=== PATIENT | female | born 1955 | race Caucasian/White ===

== ENCOUNTER 2021-07-05 12:31 | Emergency (ER) | payer OTHER ==
--- NOTE | 2021-07-05 12:39 | ED Physician Documentation ---
PD HPI CHEST PAIN - Stated complaint Stated Complaint: CHEST PX - Chief complaint Chief Complaint: Cardiac - History obtained from History obtained from: Patient - History of Present Illness Timing - onset: How many hours ago (1) Timing - onset during: Light activity Timing - duration: Hours (1) Timing - details: Abrupt onset, Still present Quality: Aching, Sharp, Pain Location: Substernal, Left chest Radiation: Jaw, Back. No: Abdominal Associated symptoms: No: Shortness of air Review of Systems Constitutional: denies: Fever, Chills Nose: denies: Rhinorrhea / runny nose, Congestion Throat: denies: Sore throat Respiratory: denies: Cough GI: reports: Abdominal Pain, Nausea, Vomiting. denies: Constipation, Diarrhea Skin: denies: Rash, Lesions Musculoskeletal: denies: Extremity swelling PD PAST MEDICAL HISTORY - Past Medical History Cardiovascular: Hypertension Respiratory: None Neuro: None Endocrine/Autoimmune: None GI: None - Allergies Allergies/Adverse Reactions: Allergies Allergy/AdvReac Type Severity Reaction Status Date / Time No Known Drug Allergies Allergy Verified 07/05/21 12:37 PD ED PE NORMAL - Vitals Vital signs reviewed: Yes - General General: Alert and oriented X 3, Well developed/nourished, Other (appears in pain) - Neck Neck: Supple, no meningeal sign, No adenopathy, No JVD, No bruit - Cardiac Cardiac: RRR, No murmur, No rub - Respiratory Respiratory: Clear bilaterally - Abdomen Abdomen: Normal bowel sounds, Soft, Non distended, No organomegaly, Other (tender in epigastric area. Normal femoral pulses. ) - Female Female : Deferred - Rectal Rectal: Deferred - Back Back: No CVA TTP - Derm Derm: Normal color - Extremities Extremities: No edema, No calf tenderness / cord - Neuro Neuro: Alert and oriented X 3, certified alcohol drug counselor 2-12 intact, No motor deficit, No sensory deficit, Other (good sensation, pulses, and cap refill in feet/toes. ) Eye Opening: Spontaneous Motor: Obeys Commands Verbal: Oriented GCS Score: 15 Results - Vitals Vitals: Vital Signs - 24 hr 07/05/21 07/05/21 07/05/21 12:37 12:38 13:08 Temperature 36.5 C Heart Rate 65 63 63 Respiratory 18 24 19 Rate Blood Pressure 121/74 172/64 H 128/63 O2 Saturation 100 100 97 07/05/21 07/05/21 07/05/21 13:30 15:00 15:30 Temperature Heart Rate 52 L 70 56 L Respiratory 21 12 16 Rate Blood Pressure 133/62 H 165/67 H 164/58 H O2 Saturation 100 99 100 07/05/21 16:00 Temperature Heart Rate 61 Respiratory 12 Rate Blood Pressure 154/69 H O2 Saturation 99 Oxygen O2 Source Room air - EKG (time done) 12:31 Rate: Rate (enter#) (60) Rhythm: NSR [place]: Normal Intervals: Normal [place] QRS: LVH Ischemia: Normal ST segments. No: ST elevation c/w ischemia, ST depression - Labs Labs: Laboratory Tests 07/05/21 07/05/21 07/05/21 12:42 12:42 12:42 WBC 6.5 RBC 4.06 L Hgb 12.5 Hct 38.3 MCV 94.3 MCH 30.8 MCHC 32.6 RDW 13.4 Plt Count 208 MPV 9.2 Neut # (Auto) 3.5 Lymph # (Auto) 2.4 [place] # (Auto) 0.5 Eos # (Auto) 0.1 Baso # (Auto) 0.0 Absolute Nucleated RBC 0.00 Nucleated RBC % 0.0 Sodium 134 L Potassium 3.2 L Chloride 96 L Carbon Dioxide 25 Anion Gap 13.0 BUN 17 Creatinine 0.9 Estimated GFR (MDRD) 63 L Glucose 148 H Calcium 9.9 Total Bilirubin 1.2 H AST 41 ALT 37 Alkaline Phosphatase 47 Troponin I High Sens 6.8 Total Protein 7.9 Albumin 4.7 Globulin 3.2 Albumin/Globulin Ratio 1.5 Lipase 33 Nasal Adenovirus (PCR) Nasal B. parapertussis DNA (PCR) Nasal Coronavir 229E PCR Nasal Coronavir HKU1 PCR Nasal Coronavir NL63 PCR Nasal Coronavir OC43 PCR Nasal Enterovir/Rhinovir PCR Nasal Influenza B PCR Nasal Influenza A PCR Nasal Parainfluen 1 PCR Nasal Parainfluen 2 PCR Nasal Parainfluen 3 PCR Nasal Parainfluen 4 PCR Nasal RSV (PCR) Nasal B.pertussis DNA PCR Nasal C.pneumoniae (PCR) Yoel Human Metapneumo PCR Nasal M.pneumoniae (PCR) Nasal SARS-CoV-2 (PCR) 07/05/21 14:44 WBC RBC Hgb Hct MCV MCH MCHC RDW Plt Count MPV Neut # (Auto) Lymph # (Auto) [place] # (Auto) Eos # (Auto) Baso # (Auto) Absolute Nucleated RBC Nucleated RBC % Sodium Potassium Chloride Carbon Dioxide Anion Gap BUN Creatinine Estimated GFR (MDRD) Glucose Calcium Total Bilirubin AST ALT Alkaline Phosphatase Troponin I High Sens Total Protein Albumin Globulin Albumin/Globulin Ratio Lipase Nasal Adenovirus (PCR) NOT DETECTED Nasal B. parapertussis DNA (PCR) NOT DETECTED Nasal Coronavir 229E PCR NOT DETECTED Nasal Coronavir HKU1 PCR NOT DETECTED Nasal Coronavir NL63 PCR NOT DETECTED Nasal Coronavir OC43 PCR NOT DETECTED Nasal Enterovir/Rhinovir PCR NOT DETECTED Nasal Influenza B PCR NOT DETECTED Nasal Influenza A PCR NOT DETECTED Nasal Parainfluen 1 PCR NOT DETECTED Nasal Parainfluen 2 PCR NOT DETECTED Nasal Parainfluen 3 PCR NOT DETECTED Nasal Parainfluen 4 PCR NOT DETECTED Nasal RSV (PCR) NOT DETECTED Nasal B.pertussis DNA PCR NOT DETECTED Nasal C.pneumoniae (PCR) NOT DETECTED Yoel Human Metapneumo PCR NOT DETECTED Nasal M.pneumoniae (PCR) NOT DETECTED Nasal SARS-CoV-2 (PCR) NOT DETECTED - Rads (name of study) chest xrAY Radiology: Prelim report reviewed (no acute process), See rad report chest angio Radiology: Prelim report reviewed (Type A aortic dissection extending to descending aorta to iliac level. Kidneys and mesentery have blood flow. ), See rad report PD MEDICAL DECISION MAKING - ED course Complexity details: reviewed results, re-evaluated patient (Pain much improved with IV meds. Still normal neuro exam. Good femoral pulses still. ), considered differential (ACS vs aortic vs gallbladder colic vs pancreatic or perf ulcer among other things. ), d/w bath design sales consultant (Talked with transfer center and waited for their CT surgery to call back. Transfer center called back about 30 minutes later saying the surgeon was in the OR currently and would take 3 to 5 hours and to try another facility. We contacted [facility] transfer and I talked with their cardiac surgeon.) ED course: The patient was feeling much improved and pain after pain medicine and nitroglycerin here. With the CT scan showing an acute dissection, we started esmolol drip as well for target heart rate under 60 and to lower the blood pressure. This was titrated up with heart rate reaching goal but the blood pressure still a bit elevated at 150 systolic. Nicardipine drip was also started and will titrate. [facility] cardiothoracic surgeon was unavailable for small several hours. They suggested another facility and we contacted [facility] and talked with Dr. Kristian Cobb cardiac surgeon as well as the surgical ICU attending and they accepted transfer the patient to the ER and subsequently go directly to the OR. The patient remained stable without any chest pain. Neurologic exam is still normal. Femoral pulses are still good and good blood flow to the extremities. - Critical Care Time(min): 55 Time Includes: Direct patient care, Document care, Coordinate care, Medical consult Data interpretation: Labs, CXR Procedures excluded from critical care time: EKG Departure - Departure Disposition: 02 Transfer Acute Care Hosp Clinical Impression: Aortic dissection, thoracic Chest pain Qualifiers: Chest pain type: unspecified Qualified Code(s): R07.9 - Chest pain, unspecified Condition: Stable Record reviewed to determine appropriate education?: Yes
[2021-07-05 12:48] LABS: BASOPHILS % (AUTO) 0.3 %; EOSINOPHILS # (AUTO) 0.1 10^3/uL (0.0-0.7); EOSINOPHILS % (AUTO) 1.1 %; HCT - HEMATOCRIT 38.3 % (37.0-47.0); HGB - HEMOGLOBIN 12.5 g/dL (12.0-16.0); LYMPHOCYTES # (AUTO) 2.4 10^3/uL (1.5-3.5); LYMPHOCYTES % (AUTO) 37.8 %; MEAN CORPUSCULAR HEMOGLOBIN 30.8 pg (27.0-31.0); MEAN CORPUSCULAR HGB CONC 32.6 g/dL (32.0-36.0); MEAN CORPUSCULAR VOLUME 94.3 fL (81.0-99.0); MEAN PLATELET VOLUME 9.2 fL (7.9-10.8); MONOCYTES # (AUTO) 0.5 10^3/uL (0.0-1.0); NEUTROPHILS # (AUTO) 3.5 10^3/uL (1.5-6.6); NEUTROPHILS % (AUTO) 53.6 %; PLT - PLATELET COUNT 208 10^3/uL (130-450); RED BLOOD COUNT 4.06 10^6/uL (4.20-5.40); RED CELL DISTRIBUTION WIDTH 13.4 % (12.0-15.0); WHITE BLOOD COUNT 6.5 x10^3/uL (4.8-10.8)
[2021-07-05] MEDS ORDERED: MORPHINE 2 MG/ML CARPUJECT IVP STA (12:54)
[2021-07-05] MEDS ORDERED: KETOROLAC 15 MG/ML VIAL IVP STA (12:54)
[2021-07-05] MEDS ORDERED: NITROGLYCERIN SL 0.4 MG TABLET SL STA (12:55)
[2021-07-05] MEDS ORDERED: SODIUM CHLORIDE 0.9% 1,000 ML IV STA (12:56)
[2021-07-05] MEDS ORDERED: ONDANSETRON 4 MG/2 ML VIAL IVP STA (12:58)
--- NOTE | 2021-07-05 13:01 | XRAY Report ---
PROCEDURE: Chest 1 View X-Ray INDICATIONS: Chest pain TECHNIQUE: One view of the chest was acquired. COMPARISON: None. FINDINGS: SUPPORT DEVICES: None. LUNGS/PLEURA: No focal consolidation, pleural effusion or space-occupying pneumothorax. MEDIASTINUM: The cardiomediastinal silhouette is within normal limits. BONES/SOFT TISSUES: No acute abnormality. IMPRESSION: 1.No acute cardiopulmonary abnormality. Reviewed by: Doug Martinez MD on 07/05/2021 12:59 PM [facility] Approved by: Doug Martinez MD on 07/05/2021 12:59 PM [facility] Station ID: [id number]
[2021-07-05 13:12] LABS: ALBUMIN 4.7 g/dL (3.2-5.5); ALBUMIN/GLOBULIN RATIO 1.5 (1.0-2.2); BILIRUBIN,TOTAL 1.2 mg/dL (0.2-1.0); CALCIUM 9.9 mg/dL (8.5-10.3); CREATININE 0.9 mg/dL (0.4-1.0); POTASSIUM 3.2 mmol/L (3.5-5.0); TOTAL PROTEIN 7.9 g/dL (6.7-8.2)
[2021-07-05] MEDS ORDERED: IOVERSOL 320 100 ML VIAL IVP ONE ×3 (13:14→17:14)
[2021-07-05] MEDS ORDERED: MAG HYDROX/AL HYDROX/SIMETH 30 ML UDC PO STA (13:28)
[2021-07-05] MEDS ORDERED: HYDROmorphone 0.5 MG/0.5 ML SYRINGE IVP STA (13:28)
--- NOTE | 2021-07-05 14:50 | CT Report ---
PROCEDURE: CT angiogram of the abdomen pelvis with contrast INDICATIONS: Aortic dissection CONTRAST: IV CONTRAST: Optiray 320 ml: 100 PO CONTRAST: *NO PO CONTRAST TECHNIQUE: Helical axial CT of the abdomen and pelvis was obtained after intravenous contrast injecti on utilizing an angiographic protocol. For radiation dose reduction, the following was used: automa latia exposure control. COMPARISON: None FINDINGS: Image quality: Excellent. Aorta: Acute aortic dissection noted. The superior mesenteric artery, both renal arteries are suppli ed by the true lumen. The celiac axis is partially fed by the true lumen. Mesenteric arteries: Celiac trunk, superior and inferior mesenteric arteries appear patent. Pelvic arteries: Dissection extends into the common iliac vessels, but terminates in the left common iliac and right proximal external iliac. Both common femoral arteries are widely patent Extravascular soft tissues: Lung bases are clear. Heart size is normal. Liver and spleen are abdirashid l in size and enhancement. Gallbladder Unremarkable. Small splenic granuloma noted. Biliary system is non dilated. Pancreas enhances normally. No adrenal nodules. Kidneys are normal in size and enh ancement, without hydronephrosis. Non opacified bowel loops are normal in wall thickness and caliber . No free fluid or air. No retroperitoneal or mesenteric adenopathy. No ventral hernias. No suspi cious bony lesions. No vertebral body compression fractures. IMPRESSION: 1. Aortic dissection without aneurysm extends minimally into the iliac vasculature. No evidence of vi sceral organ infarct. Reviewed by: Orlando Waite MD on 07/05/2021 1:48 PM [place] Approved by: Orlando Waite MD on 07/05/2021 1:48 PM [facility] Station ID: [id number]
[2021-07-05] MEDS ORDERED: ESMOLOL 2.5 GM/250 ML BAG IV STA (14:51)
--- NOTE | 2021-07-05 14:54 | CT Report ---
PROCEDURE: ANGIO CHEST W/WO INDICATIONS: abrupt chest/back pain 1 hr ago; eval aorta CONTRAST: IV CONTRAST: Optiray 320 ml: 100 PO CONTRAST: *NO PO CONTRAST TECHNIQUE: After the administration of intravenous contrast, 2 mm axial images were acquired from the pulmonary apices to the posterior costophrenic angles during the arterial phase. In addition, 1 mm lung kernel and 5 mm soft tissue kernel reconstructions were performed. 3-dimensional coronal oblique maximum int ensity projection (MIP) reformats, 8 mm axial MIP, and 5 mm coronal and sagittal MPR reformats were t hen performed through the thorax. For radiation dose reduction, the following was used: automated exp osure control, adjustment of mA and/or kV according to patient size. COMPARISON: CXR earlier today. FINDINGS: Image quality: Excellent. Aorta: Proximal thoracic aorta type A aortic dissection. The dissection extends into the right brachi ocephalic artery and into the right common carotid artery. The visualized portions of the upper right common carotid artery do not opacify with contrast, (7/5). The left carotid and subclavian veins are patent. The aortic dissection extends into the abdomen. The celiac and SMA opacify with contrast. The dissect ion flap is near the origin of these mesenteric arteries. The right and left renal arteries originate from the true lumen. Renal enhancement is symmetric. Please see separate dictated CT abdomen and pel vis. Lungs and pleura: Right upper lobe calcified granuloma. No acute airspace opacity. No pleural effusio ns or pneumothorax. Central and peripheral airways are patent. Mediastinum: Heart size is normal, without pericardial effusion. No mediastinal or hilar adenopathy . No central pulmonary embolism. Esophagus is normal in caliber, without hiatal hernia. Bones and chest wall: No suspicious bony lesions. Subchondral cystic change at the left humeral hea d. Ribs and thoracic spine appear intact throughout. No axillary or supraclavicular adenopathy. The thyroid is normal in size and there are no incidental findings. Abdomen: Visualized upper abdominal solid organs appear normal in the early arterial phase of enhanc ement. IMPRESSION: Type A proximal thoracic aortic dissection extending into the abdomen. Dissection extends into the brachiocephalic artery with occlusion of the right common carotid artery. -This can be further evaluated with CTA neck. Results were communicated to Dr. Crouch at 07/05/2021 2:36 PM PST. Please see separately dictated CT abdomen and pelvis with IV contrast. Reviewed by: Jareth Pires MD on 07/05/2021 2:53 PM PST Approved by: Jareth Pires MD on 07/05/2021 2:53 PM PST Station ID: [id number]
[2021-07-05] MEDS ORDERED: NICARDIPINE HCL 25 MG in SODIUM CHLORIDE 0.9% 240 ML IV STA (15:49)
[2021-07-05 15:56] LABS: B. PARAPERTUSSIS- RESP PCR PAN NOT DETECTED; B. PERTUSSIS- RESP PCR PANEL NOT DETECTED; C. PNEUMONIAE- RESP PCR PANEL NOT DETECTED; CORONAVIRUS 229E-RESP PCR NOT DETECTED; CORONAVIRUS HKU1-RESP PCR NOT DETECTED; CORONAVIRUS NL63-RESP PCR NOT DETECTED; CORONAVIRUS OC43-RESP PCR NOT DETECTED; HUMAN METAPNEUMOVIRUS NOT DETECTED; INFLUENZA A- RESP PCR PANEL NOT DETECTED; INFLUENZA B - RESP PCR PANEL NOT DETECTED; M. PNEUMONIAE- RESP PCR PANEL NOT DETECTED; PARAINFLUENZA VIRUS 1 NOT DETECTED; PARAINFLUENZA VIRUS 2 NOT DETECTED; PARAINFLUENZA VIRUS 3 NOT DETECTED; PARAINFLUENZA VIRUS 4 NOT DETECTED; RHINOVIRUS/ENTEROVIRUS NOT DETECTED; RSV- RESP PCR PANEL NOT DETECTED; SARS-CoV-2 -RESP PCR PANEL NOT DETECTED
[2021-07-05] MEDS ORDERED: NICARDIPINE HCL 25 MG/10 ML VIAL IV ONE ×2 (15:59→16:02)
[2021-07-05 16:08] VITALS: BP 154/69
== END 2021-07-05 16:20 | disposition short-term general hospital (02) ==
LOC: ED 12:31
DX: I71.01 Dissection of thoracic aorta (principal); R07.9 Chest pain, unspecified; I10 Essential (primary) hypertension; Z20.822 Contact with and (suspected) exposure to COVID-19
CPT/HCPCS: 0202U; 36415; 71045; 71275; 74174; 80053; 83690; 84484; 85025; 93005; 96374; 96375; 99285; 99291; A9270; J1170; Q9967

== ENCOUNTER 2022-10-16 08:23 | Emergency (ER) | payer MEDICARE, OTHER ==
[2022-10-16] MEDS ORDERED: LABETALOL 20 MG/4 ML SYRINGE IVP STA (08:52)
--- NOTE | 2022-10-16 08:53 | ED Physician Documentation ---
PD HPI CHEST PAIN - Stated complaint Stated Complaint: CHEST PX, HIGH BP - History obtained from History obtained from: Patient - Additional information Additional information: 67-year-old woman with history of aortic dissection diagnosed here June of last year and sent to [facility] for open repair. Since then has been maintained on metoprolol 100 mg p.o. twice daily and losartan 25 mg p.o. twice daily. Over the last couple of days she has had waxing and waning mild chest pain and back pain that is nonexertional and not associated with shortness of breath. She has noted higher than normal blood pressures at home. At the time of my evaluation she is pain-free. PD PAST MEDICAL HISTORY - Past Medical History Cardiovascular: Hypertension Respiratory: None Neuro: None Endocrine/Autoimmune: None GI: None - Past Surgical History Past Surgical History: Yes /FIELD SUPPORT REPRESENTATIVE: section - Present Medications Home Medications: Ambulatory Orders Medication Instructions Recorded Confirmed Cyclosporine [Restasis Multidose] 1 drops OP BID 10/16/22 10/16/22 Fluorometholone [Fml Forte] 1 drops OP TID 10/16/22 10/16/22 Folic Acid 1 mg PO DAILY 10/16/22 10/16/22 Infliximab-Dyyb [Inflectra] 100 mg IV Q2M 10/16/22 10/16/22 Losartan Potassium 25 mg ORAL BID 10/16/22 10/16/22 Methotrexate [Methotrexate Sodium] 6 tab PO Q7D 10/16/22 10/16/22 Metoprolol Succinate 100 mg PO BID 10/16/22 10/16/22 - Allergies Allergies/Adverse Reactions: Allergies Allergy/AdvReac Type Severity Reaction Status Date / Time No Known Drug Allergies Allergy Verified 10/16/22 08:56 - Social History Does the pt smoke?: No Smoking Status: Never smoker PD ED PE NORMAL - Vitals Vital signs reviewed: Yes - General General: Alert and oriented X 3, No acute distress - Neck Neck: Supple, no meningeal sign, No bony TTP - Cardiac Cardiac: RRR, No murmur, Strong equal pulses (Radial), Other (Well-healed sternotomy scar) - Respiratory Respiratory: No respiratory distress, Clear bilaterally - Abdomen Abdomen: Non tender - Neuro Neuro: Alert and oriented X 3, No motor deficit, No sensory deficit, Normal speech - Psych Psych: Normal mood, Normal affect Results - Vitals Vitals: Vital Signs - 24 hr 10/16/22 10/16/22 10/16/22 08:57 09:05 09:20 Temperature 36.6 C Heart Rate 54 L 45 L 50 L Respiratory 18 12 15 Rate Blood Pressure 198/81 H 115/95 H 179/83 H O2 Saturation 100 100 99 10/16/22 10/16/22 10/16/22 10:01 10:48 10:56 Temperature Heart Rate 60 52 L 63 Respiratory 18 14 15 Rate Blood Pressure 182/71 H 174/132 H 173/67 H O2 Saturation 100 97 100 10/16/22 10/16/22 11:07 11:32 Temperature Heart Rate 59 L 68 Respiratory 13 16 Rate Blood Pressure 142/67 H 146/66 H O2 Saturation 100 100 Oxygen O2 Source Room air - EKG (time done) 0829 EKG releavant findings:: EKG personally interpreted by author of this note. Relevant findings are: Rate: Rate (enter#) (46) Rhythm: Sinus bradycardia, LAE [place]: Normal Intervals: Normal [place] QRS: LVH Ischemia: Non specific changes Compare to prior EKG: Unchanged from prior EKG (Minimal changes from July 05, 2021) Computer interpretation: Agree with computer - Labs Labs: Laboratory Tests 10/16/22 10/16/22 10/16/22 08:45 08:45 08:45 WBC 5.8 RBC 4.09 L Hgb 12.6 Hct 38.7 MCV 94.6 MCH 30.8 MCHC 32.6 RDW 14.1 Plt Count 270 MPV 9.7 Neut # (Auto) 3.4 Lymph # (Auto) 1.8 [place] # (Auto) 0.5 Eos # (Auto) 0.1 Baso # (Auto) 0.0 Absolute Nucleated RBC 0.00 Nucleated RBC % 0.0 Sodium 135 Potassium 4.1 Chloride 100 L Carbon Dioxide 27 Anion Gap 8.0 BUN 20 Creatinine 0.8 Estimated GFR (MDRD) 72 L Glucose 101 H Calcium 9.4 Total Bilirubin 1.0 AST 18 ALT 15 Alkaline Phosphatase 57 Troponin I High Sens 8.4 Total Protein 8.2 Albumin 4.1 Globulin 4.1 Albumin/Globulin Ratio 1.0 Lipase 36 PD Medical Decision Making - ED course ED course: 67-year-old woman with history of type a dissection repair presents with resolved chest and back pain and uncontrolled blood pressures. She received 20 mg of labetalol and went over to CT which demonstrated: IMPRESSION: Postsurgical changes of previously noted type B aortic dissection with resolution of flap extending into the brachiocephalic artery. The dissection however extends through the rest of the thoracic aorta and into the abdomen/pelvis extending further into the common iliac arteries. From prior bruce- white exam there is enlargement of the aorta with the aortic arch measuring 3.7 cm and the descending aorta measuring 3.9 cm. These are increased from 3.0 and 3.3 cm from prior. Subsequent to that results she was started on a nicardipine drip and I discussed the case by phone with her cardiothoracic surgeon, Dr. Lee at [facility]. He also viewed the images and would like her to come down for aggressive blood pressure management and she was formally excepted to the ICU there by Dr. Stevens at approximately 11 AM. Her blood pressure did improve significantly on the nicardipine drip and her heart rate stayed in the 50s and 60s so no need for esmolol drip. However as her blood pressure control improved her heart rate did start creeping up into the 70s and esmolol bolus and drip was ordered. - Critical Care Time(min): 45 Time Includes: Direct patient care, Review records, Reassess patient, Document care, Coordinate care, Medical consult, Family consult for tx dec Data interpretation: Labs, Pulse ox Procedures included in critical care time: Peripheral IV Procedures excluded from critical care time: EKG Departure - Departure Disposition: 02 Transfer Acute Care Hosp Clinical Impression: Aortic dissection Condition: Critical
[2022-10-16 08:58] LABS: BASOPHILS % (AUTO) 0.5 %; EOSINOPHILS # (AUTO) 0.1 10^3/uL (0.0-0.7); HCT - HEMATOCRIT 38.7 % (37.0-47.0); HGB - HEMOGLOBIN 12.6 g/dL (12.0-16.0); LYMPHOCYTES # (AUTO) 1.8 10^3/uL (1.5-3.5); LYMPHOCYTES % (AUTO) 30.6 %; MEAN CORPUSCULAR HEMOGLOBIN 30.8 pg (27.0-31.0); MEAN CORPUSCULAR HGB CONC 32.6 g/dL (32.0-36.0); MEAN CORPUSCULAR VOLUME 94.6 fL (81.0-99.0); MEAN PLATELET VOLUME 9.7 fL (7.9-10.8); MONOCYTES # (AUTO) 0.5 10^3/uL (0.0-1.0); MONOCYTES % (AUTO) 8.7 %; NEUTROPHILS # (AUTO) 3.4 10^3/uL (1.5-6.6); PLT - PLATELET COUNT 270 10^3/uL (130-450); RED BLOOD COUNT 4.09 10^6/uL (4.20-5.40); RED CELL DISTRIBUTION WIDTH 14.1 % (12.0-15.0); WHITE BLOOD COUNT 5.8 x10^3/uL (4.8-10.8)
[2022-10-16 09:07] LABS: ALBUMIN 4.1 g/dL (3.2-5.5); CALCIUM 9.4 mg/dL (8.5-10.3); CREATININE 0.8 mg/dL (0.4-1.0); POTASSIUM 4.1 mmol/L (3.5-5.0); TOTAL PROTEIN 8.2 g/dL (6.7-8.2)
[2022-10-16] MEDS ORDERED: NICARDIPINE HCL 25 MG in SODIUM CHLORIDE 0.9% 240 ML IV STA (10:12)
--- NOTE | 2022-10-16 11:01 | CT Report ---
PROCEDURE: ANGIO ABDOMEN/PELVIS W INDICATIONS: Chest pain, history of dissection, aorta protocol CONTRAST: 100ml omni 350 TECHNIQUE: Prior to contrast administration, images were performed of the mediastinum. After the administration of intravenous contrast, 2 mm axial images were acquired from the pulmonary apices through the pelvis . For radiation dose reduction, the following was used: automated exposure control, adjustment of mA and/or kV according to patient size. COMPARISON: 07/05/2021 FINDINGS: Image quality: Excellent. Aorta: Patient is status post surgical repair of the ascending aorta dissection. Dissection is howeve r again noted just distal to the brachiocephalic artery extending through the abdominal aorta to incl ude the common iliac arteries. The iliac extension is slightly increased from prior exam. The overall size of the aorta has increased with the aortic arch now measuring approximately 3.7 cm in diameter compared to 3.0 cm. The descending aorta the level of the right pulmonary artery measures approximate ly 3.9 cm compared to 3.3 cm on prior exam. The aorta at the level of the diaphragmatic hiatus measur es 3.3 cm compared to approximately 3.1 cm on prior exam. The infrarenal abdominal aorta measures maria m roximately 2.5 cm compared to 2.3 cm on prior exam. The great vessels appear patent. The celiac, supe rior mesenteric, and inferior mesenteric arteries appear vascularized from the false lumen with the r enal arteries supplied from the true lumen. Large vessels: No filling defects within the opacified pulmonary arteries, accounting for motion and contrast timing. No evidence of acute aortic syndrome or aortic aneurysm. Lungs and pleura: No consolidation. No pleural effusions. No pneumothorax. 6 mm right upper lobe pul monary nodule unchanged in size from comparison. No new suspicious pulmonary nodules. Mediastinum: Heart size is normal. Opacification of the coronary arteries. No pericardial effusion.No mediastinal adenopathy by size criteria. Chest wall and lower neck: Thyroid is unremarkable. No axillary or supraclavicular adenopathy by size . Bones: No aggressive osseous abnormality. No acute osseous abnormality. Status post median sternotomy . Abdomen: Normal size and enhancement of the liver, spleen, pancreas, and kidneys. No adrenal nodules. The imaged bowel is normal in course and caliber without wall thickening or stranding inflammation. N o ascites or pneumoperitoneum. Pelvis: No adenopathy. No free fluid. Unremarkable organs. IMPRESSION: Postsurgical changes of previously noted type B aortic dissection with resolution of flap extending i nto the brachiocephalic artery. The dissection however extends through the rest of the thoracic aorta and into the abdomen/pelvis extending further into the common iliac arteries. From prior bruce-white exam there is enlargement of the aorta with the aortic arch measuring 3.7 cm and the descending aorta measuring 3.9 cm. These are increased from 3.0 and 3.3 cm from prior. Supply of vessels as above. Findings discussed with the ordering provider Dr. Brasher by Dr. Florentino Sigala at approximately 0945 hrs [place] Standard Time over the telephone. Reviewed by: Florentino Sigala DO on 10/16/2022 9:59 AM [facility] Approved by: Florentino Sigala DO on 10/16/2022 9:59 AM [facility] Station ID: [id number]
[2022-10-16 11:34] VITALS: BP 146/66
[2022-10-16] MEDS ORDERED: ESMOLOL 2.5 GM/250 ML BAG IV STA (11:38)
== END 2022-10-16 11:55 | disposition short-term general hospital (02) ==
LOC: SUPCPDRO 08:23 → ED 08:23
DX: I71.00 Dissection of unspecified site of aorta (principal)
CPT/HCPCS: 36415; 71275; 74174; 80053; 83690; 84484; 85025; 93005; 96374; 96375; 99285; 99291; Q9967